=== PATIENT | female | born 1950 | race Caucasian/White ===

== ENCOUNTER → 2016-12-23 | Outpatient (CLI) | payer OTHER ==
[~2016-12-23] MED LIST: CHOL100010 PO; IBUP-103 PO; LISI10TA PO; PRAV20TA PO; TRIATAB3 PO
[2016-12-23 18:03] LABS: ALT/SGPT 33 U/L (12-78); BLOOD UREA NITROGEN 13 mg/dl (7-18); BUN/CREATININE RATIO 16.6 (10-20); CARBON DIOXIDE 29 mmol/L (21-32); CHLORIDE 105 mmol/L (98-107); GLUCOSE 93 mg/dl (70-99); HDL CHOLESTEROL 59 mg/dl; POTASSIUM 3.3 mmol/L (3.5-5.1); SODIUM 143 mmol/L (136-145); TRIGLYCERIDES 169 mg/dl (0-150); VERY LOW DENSITY LIPOPROT CALC 34 mg/dl
[2016-12-23 18:05] LABS: CHOLESTEROL 191 mg/dl (0-200); CHOLESTEROL/HDL RATIO 3.2; LDL CHOLESTEROL CALCULATED 98 mg/dl
== END | disposition home or self-care (01) ==
LOC: C.LABPVFM 15:04
PROVIDERS: ATTEND Family Medicine
DX: E78.5 Hyperlipidemia, unspecified (principal); I10 Essential (primary) hypertension; Z00.00 Encounter for general adult medical examination without abnormal findings

== ENCOUNTER → 2017-04-24 | Outpatient (CLI) | payer OTHER ==
[2017-04-24 12:49] LABS: ALT/SGPT 35 U/L (12-78); AST/SGOT 29 U/L (15-37); BLOOD UREA NITROGEN 15 mg/dl (7-18); BUN/CREATININE RATIO 23.6 (10-20); CARBON DIOXIDE 31 mmol/L (21-32); CHLORIDE 103 mmol/L (98-107); CREATININE 0.65 mg/dl (0.60-1.20); GLUCOSE 100 mg/dl (70-99); POTASSIUM 3.6 mmol/L (3.5-5.1); SODIUM 142 mmol/L (136-145)
[2017-04-24 12:52] LABS: ALKALINE PHOSPHATASE 101 U/L (45-117); CHOLESTEROL 173 mg/dl (0-200); CHOLESTEROL/HDL RATIO 2.8; HDL CHOLESTEROL 62 mg/dl; LDL CHOLESTEROL CALCULATED 85 mg/dl; TRIGLYCERIDES 130 mg/dl (0-150); VERY LOW DENSITY LIPOPROT CALC 26 mg/dl
== END | disposition home or self-care (01) ==
LOC: C.LABBFT 08:30
PROVIDERS: ATTEND Family Medicine
DX: E78.5 Hyperlipidemia, unspecified (principal); I10 Essential (primary) hypertension

== ENCOUNTER → 2017-05-06 | Outpatient (CLI) | payer OTHER ==
--- NOTE | 2017-05-06 14:14 | MAMMOGRAPHY REPORT ---
BILATERAL DIGITAL DIAGNOSTIC MAMMOGRAM TOMOSYNTHESIS WITH CAD: 05/06/2017 CLINICAL HISTORY: 66 year old woman with a personal history of bilateral breast cancer presents for b ilateral mammograms. TECHNIQUE: Bilateral breast tomosynthesis in addition to standard 2D mammography was performed. Spot magnification CC and ML views of each breast were obtained. Current study was also evaluated with a Computer Aided Detection (CAD) system. COMPARISON: Comparison is made to exams dated: 11/05/2016 mammogram, 05/07/2016 mammogram, 03/22/2015 m ammogram, 03/22/2015 ultrasound biopsy, 03/09/2015 ultrasound, and 03/09/2015 mammogram - [facility]. BREAST COMPOSITION: There are scattered areas of fibroglandular density in both breasts. FINDINGS: There is expected architectural distortion in the upper outer posterior right breast, and 6:00 far posterior left breast, at the sites of prior lumpectomies. There are scattered benign rim c alcifications in the breasts, particularly in the lateral right breast near the surgical site. There is mild asymmetry in the far posterior slightly medial left breast on the CC view which could simply represent scar tissue. However, further evaluation with ultrasound was performed. No new suspiciou s mass, architectural distortion or cluster of microcalcifications is seen. Targeted ultrasound was performed in the 5:00 and 6:00 axes of the left breast in the area of skin soto rgical scar. There is linear hypoechoic tissue that looks like scar tissue and extends to the skin s urface. No suspicious solid mass is identified. IMPRESSION: ACR BI-RADS CATEGORY 2: BENIGN Expected post treatment changes in each breast. No mammographic or targeted sonographic evidence of malignancy. Recommend bilateral mammography in one year. Would also recommend additional screening with breast MRI, which can be obtained now, given the history of bilateral breast cancer, and far pos terior location of the left breast cancer. These results and recommendations were discussed with the patient at the time of the exam. Approximately 10% of breast cancers are not detected with mammography. A negative mammographic report should not delay biopsy if a clinically suggestive mass is present. Gabby Rios M.D. ay/:05/06/2017 12:37:55 Cell Technician: Lian ROLAND)([place]), [facility] letter sent: Normal 1/2 BI-RADS Code: ACR BI-RADS Category 2: Benign
--- NOTE | 2017-05-06 14:14 | MAMMOGRAPHY REPORT ---
ULTRASOUND OF BOTH BREASTS: 05/06/2017 CLINICAL HISTORY: Ultrasound for an asymmetry in the far posterior left breast or the surgical site. Please refer to the report from bilateral diagnostic mammograms performed at the same time for full d etail. IMPRESSION: ACR BI-RADS CATEGORY 2: BENIGN Please refer to the report from bilateral diagnostic mammograms performed at the same time for full d etail. Gabby Rios M.D. ay/:05/06/2017 13:24:35 Senior Research Executive: Lian CASTILLO(Mariajose)([place]), [facility] letter sent: Normal 1/2 BI-RADS Code: ACR BI-RADS Category 2: Benign
== END | disposition home or self-care (01) ==
LOC: C.MAMM 10:35
PROVIDERS: ATTEND Surgery
DX: N64.9 Disorder of breast, unspecified (principal)

== ENCOUNTER → 2017-05-15 | Outpatient (CLI) | payer OTHER ==
--- NOTE | 2017-05-16 12:31 | MAMMOGRAPHY REPORT ---
BREAST MRI OF BOTH BREASTS : 05/15/2017 CLINICAL HISTORY: History of bilateral breast cancer. COMPARISON: Comparison is made to exams dated: 05/06/2017 mammogram, 11/05/2016 mammogram, 05/07/2016 mammogram, 03/22/2015 mammogram, and 03/01/2014 mammogram - [facility]. Technique: The patient was placed prone in a dedicated breast imaging coil. Precontrast axial T1-shadia ghted, axial T2-weighted fat saturation, and axial T1-weighted fat saturation images were obtained. After the administration of Gadavist IV contrast, sequential T1-weighted fat saturation images were o btained. Subtraction images were obtained of the dynamic contrast enhanced sequences, and 3-D reform ations were performed. The [employer] software was used for kinetic analysis. Findings: There is minimal background parenchymal enhancement bilaterally. There are postsurgical changes from bilateral lumpectomies involving the right upper outer quadrant and left central posterior breast. There is mild diffuse thickening and T2 hyperintensity of the left breast skin, likely a sequela of r adiation therapy. There is mild skin thickening in the right lateral anterior breast, likely a seque la of prior therapy. A 3 mm focus of enhancement is seen within the skin in the right lateral anteri or breast, likely the right 9:00 periareolar region although the nipple location isnot clearly eviden t on the exam (series [id number] image 60). This is in the region of skin thickening and likely represent s posttreatment changes or could represent a benign dermal lesion such as a sebaceous cyst. There are no suspicious enhancing masses or areas of abnormal non-mass enhancement within either breast. There is no evidence of axillary adenopathy. The chest wall structures are negative. Extramammary s oft tissues are unremarkable. IMPRESSION: ACR BI-RADS CATEGORY 2: BENIGN Posttreatment changes bilaterally, without MRI evidence of malignancy in either breast. Recommend ro utine bilateral mammograms in one year, and consider annual screening breast MRI in one year. Rema López M.D. /:05/15/2017 17:10:13 Prototyper: pathology secretary, [facility] BI-RADS Code: ACR BI-RADS Category 2: Benign
== END | disposition home or self-care (01) ==
LOC: C.MRI 09:16
PROVIDERS: ATTEND Surgery
DX: R92.8 Other abnormal and inconclusive findings on diagnostic imaging of breast (principal); Z85.3 Personal history of malignant neoplasm of breast

== ENCOUNTER → 2017-10-01 | Outpatient (CLI) | payer OTHER ==
[2017-10-01 13:18] VITALS: BP 144/76; PULSE 88; TEMP 36.6; O2SAT 95
--- NOTE | 2017-10-02 07:26 | Radiation Oncology Follow-Up ---
Radiation Oncology Follow-Up Date of Visit Oct 01, 2017. Reason For Visit Annual follow-up Radiation Completion Date 02/26/16 Diagnosis (1) Malignant neoplasm of upper-outer quadrant of female breast Status: Resolved Onset Date: 11/22/2011 Histology Subtype: ductal Stage: ll (A) Permanent Comment: Abnormal right breast mammogram Status post biopsy positive for infiltrating ductal carcinoma the right breast Status post right partial mastectomy and sentinel lymph node biopsy Pathologic stage [id number] Estrogen receptor positive, progesterone receptor positive, HER-2/geraldine negative Status post systemic chemotherapy with 4 cycles of Taxotere plus Cytoxan Status post completion of radiation therapy 08/12/2012 received 6120 cGy Treatment with tamoxifen Last Edited By: Sameera Toribio on Jul 26, 2015 10:38 (2) Cancer of central portion of left breast Status: Resolved Onset Date: 03/22/2015 Histology Subtype: ductal Stage: ll (A) Permanent Comment: Left breast mass found on physical examination Abnormal left breast mammogram Status post ultrasound-guided core needle biopsy 03/22/2015 revealing Invasive ductal carcinoma grade 3 Estrogen receptor negative, progesterone receptor positive, HER-2/geraldine negative Status post lumpectomy and sentinel lymph node biopsy 05/17/2015 Stage [id number] Reexcision 06/13/2015 negative for residual tumor Status post completion of chemotherapy with Taxotere and Cytoxan Change to epirubicin and Cytoxan after reaction to Taxotere Status post completion of radiation therapy 02/26/2016 received 6120 cGy Last Edited By: Sameera Toribio on Mar 06, 2016 10:36 History of Present Illness Ms. Reed is known to our office from prior radiation therapy. She had been found to have an abnormal mammogram in November 2011. She had a biopsy that was positive revealing an infiltrating ductal carcinoma. She underwent a right partial mastectomy and sentinel lymph node biopsy. This was estrogen receptor positive, progesterone receptor positive, and HER-2/geraldine negative. The pathologic staging was [id number]. She completed systemic chemotherapy with Taxotere and Cytoxan. She then returned to our office and underwent radiation therapy. Radiation was completed 08/12/2012 and she received 6120 cGy. Following completion of the radiation she was on tamoxifen therapy. She had regular follow-up mammography and physical examinations. On her most recent physical examination by Dr. Camelia Pinto a palpable abnormality was found in the left breast. With this finding she was sent for mammography. Mammogram was performed on 03/09/2015. This showed a new solid hypoechoic 12 mm mass at the 6 o'clock position of the left breast and biopsy was recommended. The biopsy was carried out using ultrasound guidance 03/22/2015. The path report revealed invasive ductal carcinoma Faustino grade 3 of 3. There is no lymphovascular or perineural invasion identified. Estrogen receptor was -0%. Progesterone receptor positive at 45%. HER-2/geraldine overexpression was 0. The Ki-67 proliferation index was high at 85-90%. She then underwent lumpectomy with sentinel lymph node biopsy 05/17/2015. This revealed an invasive ductal carcinoma with medullary features and necrotic foci, histologic grade 3 out of 3. The tumor size was 2.2 cm. 3 sentinel nodes were evaluated and were negative for metastatic disease. There were positive margins at the superior and anterior margins. Lymphovascular invasion was present. This was given a AJCC staging of pT2 pN0M0. Due to positive margins she had a reexcision 06/13/2015. This showed no residual carcinoma. She has steadily recovered from her surgery. She is seen Dr. Chavez for evaluation. He is planning chemotherapy with Taxotere and Cytoxan. He had reviewed her case also with Dr. Echols the [facility] in [place]. And it was his recommendation for her to receive the Taxotere and Cytoxan. Our office was consult to discuss radiation therapy. She returns to our office after the completion of chemotherapy. She received 4 cycles of treatment. Initially she was given Taxotere and Cytoxan. She had an allergic reaction to the Taxotere. This was discontinued and then she was given epirubicin. With this course of chemotherapy she did have an increase in neuropathy. She had no nausea or vomiting. She did not have weakness when compared to the previous chemotherapy. She has had some nail changes. She did not experience any sores in her mouth. This also did not affect her taste compared to the prior treatment. She's had no discomfort or change of the breast since her last visit. She underwent CT simulation and then began radiation therapy. She was treated from 01/08/2016 to 02/26/2016. She received 6120 cGy Interim History She has been going well over this past year. She denies any changes to her breast. She's noted no masses or tenderness and no change of the axilla. She' s had no swelling of her arm. She is up-to-date on mammography. She had mammogram on 05/06/2017. She also had an MRI of her breasts on 05/15/2017. She has had follow-up visits with her breast surgeon as well as medical oncologist. She had been on antiestrogen therapy. This was discontinued after a DVT. She is scheduled for follow-up mammography on 05/07/2018. Allergies Coded Allergies: Anastrozole (Verified Allergy, Severe, Blood Clot , 10/14/16) Alcohol (Verified Allergy, Intermediate, RASH, 10/14/16) " extreme flushing " Docetaxel (Verified Allergy, Intermediate, RASH, 10/14/16) " extreme flushing " Ethanol (Verified Allergy, Intermediate, RASH, 10/14/16) " extreme flushing " Sorbitan (Verified Allergy, Intermediate, RASH, 10/14/16) " extreme flushing " Sulfa Drugs (Unverified Allergy, Unknown, hives, 10/14/16) Home Medications Scheduled Cholecalciferol (Vitamin D), 2,000 INTER.UNIT PO DAILY Lisinopril (Prinivil), 10 MG PO DAILY Pravastatin (Pravachol ), 10 MG PO DAILY Triamterene/Hctz (Triamterene/Hctz 37.5-25MG), 1 TAB PO DAILY Scheduled PRN Ibuprofen Tab (Advil), 600 MG PO Q8 PRN for Moderate Pain Review of Systems Gastrointestinal: Symptoms: WNL Oral: Symptoms: No Problems Respiratory: Symptoms: WNL Urinary: Symptoms: WNL Skin: Symptoms: No Problems Breast: Right Upper Arm Measurement: 32.5 Right Mid Arm Measurement: 26.5 Right Wrist Measurement: 17.5 Left Upper Arm Measurement: 33.5 Left Mid Arm Measurement: 27.0 Left Wrist Measurement: 17.5 Arm Dominence: Right Physical Exam Vital Signs Date Time Temp Pulse Resp B/P (MAP) Pulse Ox O2 Delivery O2 Flow Rate FiO2 10/01/17 13:18 36.6 88 18 144/76 95 Fatigue: None General Appearance: no apparent distress Eyes: normal inspection, EOMI ENT: normal ENT inspection, hearing grossly normal Neck: no adenopathy Respiratory/Chest: lungs clear, no respiratory distress, no accessory muscle use Breast: Breast examination reveals bilateral well-healed incisions. There are no masses or tenderness and no axillary adenopathy. There is some mild hyperpigmentation of the left breast. She has no skin retractions or nipple changes. Using the [place] score cosmesis she has a good outcome bilaterally. Cardiovascular: regular rate, rhythm, no gallop, + systolic murmur (2/6 heard best at the aortic area) Extremities: no pedal edema Neurologic/Psychiatric: no motor/sensory deficits, alert, normal mood/affect Skin: warm/dry Lymphatic: no adenopathy Pain Management Pain Location: None Patient Preferred Pain Scale: 0 - 10 Laboratory Studies Test 09/18/17 11:35 Sodium Level 140 mmol/L (136-145) Potassium Level 3.8 mmol/L (3.5-5.1) Chloride Level 103 mmol/L (98-107) Carbon Dioxide Level 32 mmol/L (21-32) Anion Gap 5.0 mmol/L (3-11) Blood Urea Nitrogen 14 mg/dl (7-18) Creatinine 0.67 mg/dl (0.60-1.20) Estimated GFR () 106.2 Estimated GFR (Non- 91.6 BUN/Creatinine Ratio 21.6 (10-20) Random Glucose 82 mg/dl (70-99) Calcium Level 9.3 mg/dl (8.5-10.1) Additional Studies Patient: PANCHITO REED [facility] Rec: [id number] Address1: [address] [place] [address] Address2: [place] [address] Acct ID: [id number] Date: 1950 Sex: F Ref Phy: Camelia Pinto MD Att Phy: Camelia Pinto MD Yen Phy: Guillaume Freeman M.D. Inter Phy: Gabby Rios MD [facility] Zip: [place] [address] SC: TonaMAMM Report #: [id number] Watch Dial Printer: RAUL Diagnosis: 6 MONTH F/U BILATERAL Service Date: 05/06/17 MNE: MAMM1 Ordering Dr: Camelia Pinto MD CC: Camelia Pinto MD CONF: DICTATED BY: Gabby Rios MD MAMMOGRAPHY REPORT BILATERAL DIGITAL DIAGNOSTIC MAMMOGRAM TOMOSYNTHESIS WITH CAD: 05/06/2017 CLINICAL HISTORY: 66 year old woman with a personal history of bilateral breast cancer presents for bilateral mammograms. TECHNIQUE: Bilateral breast tomosynthesis in addition to standard 2D mammography was performed. Spot magnification CC and ML views of each breast were obtained. Current study was also evaluated with a Computer Aided Detection (CAD) system. COMPARISON: Comparison is made to exams dated: 11/05/2016 mammogram, 05/07/2016 mammogram, 03/22/2015 mammogram, 03/22/2015 ultrasound biopsy, 03/09/2015 ultrasound , and 03/09/2015 mammogram - [facility]. BREAST COMPOSITION: There are scattered areas of fibroglandular density in both breasts. FINDINGS: There is expected architectural distortion in the upper outer posterior right breast, and 6:00 far posterior left breast, at the sites of prior lumpectomies. There are scattered benign rim calcifications in the breasts, particularly in the lateral right breast near the surgical site. There is mild asymmetry in the far posterior slightly medial left breast on the CC view which could simply represent scar tissue. However, further evaluation with ultrasound was performed. No new suspicious mass, architectural distortion or cluster of microcalcifications is seen. Targeted ultrasound was performed in the 5:00 and 6:00 axes of the left breast in the area of skin surgical scar. There is linear hypoechoic tissue that looks like scar tissue and extends to the skin surface. No suspicious solid mass is identified. IMPRESSION: ACR BI-RADS CATEGORY 2: BENIGN Expected post treatment changes in each breast. No mammographic or targeted sonographic evidence of malignancy. Recommend bilateral mammography in one year. Would also recommend additional screening with breast MRI, which can be obtained now, given the history of bilateral breast cancer, and far posterior location of the left breast cancer. These results and recommendations were discussed with the patient at the time of the exam. Approximately 10% of breast cancers are not detected with mammography. A negative mammographic report should not delay biopsy if a clinically suggestive mass is present. Gabby Rios M.D. ay/:05/06/2017 12:37:55 Sparker And Patcher: Lian CASTILLO(Mariajose)([place]), [facility] letter sent: Normal 1/2 BI-RADS Code: ACR BI-RADS Category 2: Benign Dictated by: Gabby Rios MD Signed by: Gabby Rios MD Patient: PANCHITO REED [facility] Rec: [id number] Address1: [address] [place] [address] Address2: [address] Acct ID: [id number] Date: 1950 Sex: F Ref Phy: Camelia Pinto MD Att Phy: Camelia Pinto MD Yen Phy: Guillaume Freeman M.D. Inter Phy: Gabby Rios MD [facility]: [place] [address] SC: C.MAMM Report #: [id number] Watch Dial Printer: RAUL Diagnosis: 6 MONTH F/U BILATERAL Service Date: 05/06/17 MNE: MAMM1 Ordering Dr: Camelia Pinto MD CC: Camelia Pinto MD CONF: DICTATED BY: Gabby Rios MD MAMMOGRAPHY REPORT ULTRASOUND OF BOTH BREASTS: 05/06/2017 CLINICAL HISTORY: Ultrasound for an asymmetry in the far posterior left breast or the surgical site. Please refer to the report from bilateral diagnostic mammograms performed at the same time for full detail. IMPRESSION: ACR BI-RADS CATEGORY 2: BENIGN Please refer to the report from bilateral diagnostic mammograms performed at the same time for full detail. Gabby Rios M.D. ay/:05/06/2017 13:24:35 Sparker And Patcher: Lian CASTILLO(Mariajose)([place]), [facility] letter sent: Normal 1/2 BI-RADS Code: ACR BI-RADS Category 2: Benign Dictated by: Gabby Rios MD Signed by: Gabby Rios MD Patient: PANCHITO REED [facility] Rec: [id number] Address1: [address] [place] [address] RD Address2: [address] Acct ID: [id number] Date: 1950 Sex: F Ref Phy: Camelia Pinto MD Att Phy: Camelia Pinto MD Yen Phy: Guillaume Freeman M.D. Inter Phy: Rema López MD [facility] Zip: [place] [address] SC: C.MRI Report #: [id number] Watch Dial Printer: CELIA Diagnosis: HX OF BREAST CA/ABNORMAL MAMM Service Date: 05/15/17 MNE: MAMM1 Ordering Dr: Camelia Pinto MD CC: Camelia Pinto MD CONF: DICTATED BY: Rema López MD MAMMOGRAPHY REPORT BREAST MRI OF BOTH BREASTS : 05/15/2017 CLINICAL HISTORY: History of bilateral breast cancer. COMPARISON: Comparison is made to exams dated: 05/06/2017 mammogram, 11/05/2016 mammogram, 05/07/2016 mammogram, 03/22/2015 mammogram, and 03/01/2014 mammogram - [facility]. Technique: The patient was placed prone in a dedicated breast imaging coil. Precontrast axial T1-weighted, axial T2-weighted fat saturation, and axial T1- weighted fat saturation images were obtained. After the administration of Gadavist IV contrast, sequential T1-weighted fat saturation images were obtained. Subtraction images were obtained of the dynamic contrast enhanced sequences, and 3-D reformations were performed. The [employer] software was used for kinetic analysis. Findings: There is minimal background parenchymal enhancement bilaterally. There are postsurgical changes from bilateral lumpectomies involving the right upper outer quadrant and left central posterior breast. There is mild diffuse thickening and T2 hyperintensity of the left breast skin, likely a sequela of radiation therapy. There is mild skin thickening in the right lateral anterior breast, likely a sequela of prior therapy. A 3 mm focus of enhancement is seen within the skin in the right lateral anterior breast, likely the right 9:00 periareolar region although the nipple location isnot clearly evident on the exam (series [id number] image 60). This is in the region of skin thickening and likely represents posttreatment changes or could represent a benign dermal lesion such as a sebaceous cyst. There are no suspicious enhancing masses or areas of abnormal non-mass enhancement within either breast. There is no evidence of axillary adenopathy. The chest wall structures are negative. Extramammary soft tissues are unremarkable. IMPRESSION: ACR BI-RADS CATEGORY 2: BENIGN Posttreatment changes bilaterally, without MRI evidence of malignancy in either breast. Recommend routine bilateral mammograms in one year, and consider annual screening breast MRI in one year. Rema López M.D. ah/:05/15/2017 17:10:13 Sparker And Patcher: sales service promoter, [facility] BI-RADS Code: ACR BI-RADS Category 2: Benign Dictated by: Rema López MD Signed by: Rema López MD Assessment & Plan Plan: Continue with scheduled mammography. Her next mammogram is 05/07/2018. Continue regular follow-up with medical oncology in her breast surgeon. She continues follow-up with her primary care physician. We asked her to return to our office in 1 year. She may call if she has any questions or concerns in the interim. He discussed follow-up MRIs. We will defer this decision to the breast surgeon. Total Time In Follow-Up I spent 20 minutes speaking to the patient performing examination. I spent 15 minutes reviewing information and completeness note. Copy To Camelia Pinto MD; Navin Chavez M.D.; Guillaume Freeman M.D. Problem Qualifiers (1) Malignant neoplasm of upper-outer quadrant of female breast: Estrogen receptor status: positive Laterality: right Qualified Codes: C50.411 - Malignant neoplasm of upper-outer quadrant of right female breast; Z17.0 - Estrogen receptor positive status [ER+]
== END | disposition home or self-care (01) ==
LOC: C.ONC 13:05
PROVIDERS: ATTEND Physician Assistant Medical
DX: Z08 Encounter for follow-up examination after completed treatment for malignant neoplasm (principal); Z92.3 Personal history of irradiation; Z85.3 Personal history of malignant neoplasm of breast